=== PATIENT | male | born 1990 | race African-American/Black ===

== ENCOUNTER 2019-10-21 23:53 | Emergency (ER) | payer SELFPAY ==
[~2019-10-21] VITALS: Ht 172.7 cm; Wt 74.0 kg
[2019-10-21 23:59] VITALS: BP 142/84
== END 2019-10-22 00:28 | disposition home or self-care (01) ==
LOC: ER 23:57
DX: J02.9 Acute pharyngitis, unspecified (principal); R03.0 Elevated blood-pressure reading, without diagnosis of hypertension
CPT/HCPCS: 99283

== ENCOUNTER 2020-02-13 09:08 | Emergency (ER) | payer MEDICAID ==
[~2020-02-13] VITALS: Ht 172.7 cm; Wt 78.0 kg
[2020-02-13 09:11] VITALS: BP 123/80
[2020-02-13] MEDS ORDERED: VISCOUS LIDOCAINE 2% 15 ML UDC PO ONE (09:30)
[2020-02-13] MEDS ORDERED: MAGNESIUM/ALUMINUM HYDROXIDE/SIMETHICONE 30ML UDC PO ONE (09:30)
== END 2020-02-13 10:17 | disposition home or self-care (01) ==
LOC: ER 09:08
DX: K21.9 Gastro-esophageal reflux disease without esophagitis (principal); J45.909 Unspecified asthma, uncomplicated; F17.200 Nicotine dependence, unspecified, uncomplicated; F12.10 Cannabis abuse, uncomplicated
CPT/HCPCS: 99283

== ENCOUNTER 2023-09-26 10:32 | Emergency (ER) | payer MEDICAID ==
[~2023-09-26] VITALS: Ht 172.7 cm; Wt 73.5 kg
[2023-09-26 10:42] VITALS: O2SAT 98
[2023-09-26 11:10] LABS: HEMATOCRIT 43.4 % (42.0-52.0); MEAN CORPUSCULAR HEMOGLOBIN 29.1 pg (28.0-32.0); MEAN CORPUSCULAR HGB CONC 32.1 g/dL (31.0-37.0); MEAN CORPUSCULAR VOLUME 90.5 fL (80.0-94.0); PLATELET 273 x1000/uL (130-400); RED CELL DISTRIBUTION WIDTH 13.4 % (11.6-14.6); WHITE BLOOD COUNT 5.9 x1000/uL (4.5-11.0)
[2023-09-26 11:18] LABS: CHLORIDE 109 mEq/L (98-107); POTASSIUM 4.1 mEq/L (3.5-5.1); SODIUM 140 mEq/L (136-145)
[2023-09-26 11:19] LABS: CALCIUM 9.4 mg/dL (8.7-10.4); CARBON DIOXIDE 27 mEq/L (21-32)
[2023-09-26 11:24] LABS: CREATININE 0.9 mg/dL (0.6-1.3); GLUCOSE 66 mg/dL (70-105); UREA NITROGEN BLOOD 9 mg/dL (9-23)
[2023-09-26 11:27] LABS: TROPONIN I HIGH SENSITIVITY < 4 ng/L (3.0-53)
[2023-09-26] MEDS: FAMOTIDINE 20MG TABLET PO ONE (11:30)
[2023-09-26] MEDS: ONDANSETRON 4MG ODT PO ONE (11:30)
[2023-09-26] MEDS: MAGNESIUM/ALUMINUM HYDROXIDE/SIMETHICONE 30ML UDC PO ONE (11:31)
[2023-09-26] MEDS ORDERED: FAMO-135 MT (12:39)
[2023-09-26] MEDS ORDERED: MAG-55 MT (12:39)
[2023-09-26 12:55] VITALS: BP 135/87; PULSE 61; RESP 19; TEMP 98.3
== END 2023-09-26 12:57 | disposition home or self-care (01) ==
LOC: ER 10:36
DX: K29.70 Gastritis, unspecified, without bleeding (principal); J45.909 Unspecified asthma, uncomplicated; K21.9 Gastro-esophageal reflux disease without esophagitis; F12.90 Cannabis use, unspecified, uncomplicated
CPT/HCPCS: 99285; 71045; 80048; 82962; 83690; 85027; 84484; 36415; 93005; Q0162